=== PATIENT | male | born 1990 | race Caucasian/White ===

== ENCOUNTER 2023-03-20 14:28 | Emergency (ER) | payer SELFPAY ==
[2023-03-20 14:34] VITALS: PULSE 92; TEMP 98.2; BMI 30.1
[2023-03-20] MEDS ORDERED: LACTATED RINGERS SOLUTION 1,000 ML/1,000 ML INFUS.BAG IV SCH (15:00)
[2023-03-20 15:11] LABS: BASO % 0.4 % (0-2.0); EOS % 0.4 % (0-4.5); HEMATOCRIT 42.1 % (35.4-49); HEMOGLOBIN 14.6 GM/dL (11.7-16.9); LYMPH % 10.3 % (8-40); MCH 28.8 pg (25.7-33.7); MCHC 34.8 g/dl (32.0-35.9); MEAN PLT VOLUME 8.7 fl (7.5-11.1); MONO % 6.2 % (3.8-10.2); NEUT % 82.7 % (42.8-82.8); PLATELET COUNT 235 10^3/uL (134-434); RBC 5.08 M/mm3 (4.00-5.60); RDW 13.4 % (11.9-15.9); WHITE BLOOD COUNT 10.1 K/mm3 (4.0-10.0)
[2023-03-20 15:30] LABS: POTASSIUM 3.7 mmol/L (3.5-5.1)
[2023-03-20 15:32] LABS: CALCIUM 9.4 mg/dL (8.5-10.1)
[2023-03-20 15:33] LABS: BLOOD UREA NITROGEN 10.2 mg/dL (7-18); MAGNESIUM 1.7 mg/dL (1.8-2.4)
[2023-03-20 15:36] LABS: TOT PROT 7.9 g/dl (6.4-8.2)
[2023-03-20 15:38] LABS: BILIRUBIN,TOTAL 0.3 mg/dL (0.2-1)
[2023-03-20] MEDS ORDERED: MAGNESIUM SULF 50% (8.12 MEQ/2 ML-1 GM VIAL) IVPB ONE (16:15)
[2023-03-20] MEDS ORDERED: MAGNESIUM SULFATE IN WATER 2 GM/50 ML IVPB IVPB ONE (16:38)
[2023-03-20 16:46] LABS: POTASSIUM 3.9 mmol/L (3.5-5.1)
[2023-03-20 16:47] LABS: CALCIUM 9.5 mg/dL (8.5-10.1)
[2023-03-20 16:48] LABS: BLOOD UREA NITROGEN 9.8 mg/dL (7-18)
[2023-03-20 16:51] LABS: CREATININE 0.9 mg/dL (0.55-1.3)
[2023-03-20 16:56] VITALS: BP 126/70; RESP 16
== END 2023-03-20 17:56 | disposition home or self-care (01) ==
LOC: JER 14:28
PROC: 3E033GC Introduction of Other Therapeutic Substance into Peripheral Vein, Percutaneous Approach (ICD-10-PCS; principal; 2023-03-20)
DX: R20.2 Paresthesia of skin (principal); R06.02 Shortness of breath; E86.0 Dehydration; E87.8 Other disorders of electrolyte and fluid balance, not elsewhere classified
CPT/HCPCS: 36415; 71046-TC-FY; 80048; 80053; 83735; 85025; 93005; 93010; 99285-25

== ENCOUNTER 2023-07-01 09:03 | Observation (INO) | payer OTHER ==
[2023-07-01 09:10] VITALS: BMI 28.2
[2023-07-01] MEDS ORDERED: ASPIRIN 325 MG TABLET PO ONE (09:27)
[2023-07-01] MEDS ORDERED: ASPIRIN 325 MG TABLET ONE (09:31)
[2023-07-01 09:45] LABS: BASO % 0.5 % (0-2.0); EOS % 2.3 % (0-4.5); HEMATOCRIT 45.2 % (35.4-49); HEMOGLOBIN 15.8 GM/dL (11.7-16.9); LYMPH % 29.1 % (8-40); MCH 28.9 pg (25.7-33.7); MCHC 34.9 g/dl (32.0-35.9); MEAN CELL VOLUME 82.8 fl (80-96); MEAN PLT VOLUME 8.9 fl (7.5-11.1); MONO % 8.4 % (3.8-10.2); NEUT % 59.7 % (42.8-82.8); PLATELET COUNT 254 10^3/uL (134-434); RBC 5.46 M/mm3 (4.00-5.60); RDW 13.7 % (11.9-15.9)
[2023-07-01 09:50] LABS: INR 1.02 (0.83-1.09); PROTHROMBIN TIME (PATIENT) 11.8 SEC (9.7-13.0)
[2023-07-01] MEDS ORDERED: FAMOTIDINE 20 MG/50 ML IVPB 20 MG/50 ML MG IVPB ONE ×2 (09:56→10:05)
[2023-07-01] MEDS ORDERED: ACETAMINOPHEN 1000 MG/100 ML BAG IVPB ONE (09:56)
[2023-07-01 10:05] LABS: BLOOD UREA NITROGEN 9.3 mg/dL (7-18); CALCIUM 9.4 mg/dL (8.5-10.1)
[2023-07-01] MEDS ORDERED: ACETAMINOPHEN INJECTION 100 ML IVPB ONE (10:05)
[2023-07-01 10:06] LABS: MAGNESIUM 2.1 mg/dL (1.8-2.4)
[2023-07-01 10:08] LABS: CREATININE 0.9 mg/dL (0.55-1.3)
[2023-07-01 10:10] LABS: TOT PROT 8.2 g/dl (6.4-8.2)
[2023-07-01 10:13] LABS: BILIRUBIN,TOTAL 0.8 mg/dL (0.2-1)
[2023-07-01] MEDS: FAMOTIDINE 20 MG TABLET PO SCH (23:00)
[2023-07-02] MEDS: FAMOTIDINE 20 MG TABLET PO SCH (10:16)
[2023-07-02 13:22] LABS: CHOLESTEROL 224 mg/dL (50-200)
[2023-07-02 13:24] LABS: LDL CHOLESTEROL (ONLY SJRH) 150 mg/dL (5-100)
[2023-07-02 13:25] LABS: HDL CHOLESTEROL 53 mg/dL (40-60)
[2023-07-02 15:46] VITALS: BP 134/79; PULSE 55; RESP 19; TEMP 98.6
== END 2023-07-02 17:00 | disposition home or self-care (01) ==
LOC: JER 09:03 → JERBED 10:26 → J4W 23:15
PROVIDERS: ADMIT Internal Medicine; ATTEND Internal Medicine
PROC: 3E033NZ Introduction of Analgesics, Hypnotics, Sedatives into Peripheral Vein, Percutaneous Approach (ICD-10-PCS; principal; 2023-07-01)
PROC: 3E033GC Introduction of Other Therapeutic Substance into Peripheral Vein, Percutaneous Approach (ICD-10-PCS; 2023-07-01)
DX: I45.10 Unspecified right bundle-branch block (principal)
CPT/HCPCS: 36415; 71045-TC-FY; 80053; 80061; 82550; 83036; 83735; 84484; 85025; 85379; 85610; 86850; 86900; 86901; 93005; 93010; 96365; 96375; 99285-25; G0378

== ENCOUNTER 2023-11-01 18:39 | Emergency (ER) | payer OTHER ==
[2023-11-01 18:47] VITALS: BP 117/65; PULSE 86; RESP 18; TEMP 100; BMI 30.7
[2023-11-01] MEDS ORDERED: ACETAMINOPHEN 500 MG TABLET (FP) ONE (19:43)
[2023-11-01] MEDS ORDERED: IBUPROFEN 400 MG TABLET (FP) PO ONE (19:43)
[2023-11-01] MEDS: IBUPROFEN 400 MG TABLET (FP) PO ONE (19:44)
[2023-11-01] MEDS: ACETAMINOPHEN 500 MG TABLET (FP) PO ONE (19:44)
[2023-11-01 20:21] LABS: THROAT:GRP A STREP DETECTED (NOTDETECTED)
[2023-11-01] MEDS ORDERED: AMOXICILLIN 250 MG CAPSULE ONE (21:03)
[2023-11-01] MEDS: AMOXICILLIN 500 MG CAPSULE (FP) PO ONE (21:05)
== END 2023-11-01 21:05 | disposition home or self-care (01) ==
LOC: JER 18:39 → JERFT 18:39
DX: R51.9 Headache, unspecified (principal); M54.2 Cervicalgia; J02.0 Streptococcal pharyngitis; Z20.822 Contact with and (suspected) exposure to COVID-19
CPT/HCPCS: 0241U-QW; 87651; 99283-25